=== PATIENT | female | born 1960 | race Caucasian/White ===

== ENCOUNTER 2016-10-04 13:46 | Emergency (ER) | payer MEDICAID ==
[2016-10-04 14:18] VITALS: BP 147/69; PULSE 84; RESP 18; TEMP 98; O2SAT 99
--- NOTE | 2016-10-04 15:28 | ED PDOC ---
HPI: Skin/Bite Injury Time Seen by Provider: 10/04/16 14:34 Chief Complaint (Nursing): Abnormal Skin Integrity Chief Complaint (Provider): Rash History Per: Patient History/Exam Limitations: no limitations Onset/Duration Of Symptoms: Persistent (2 weeks ) Current Symptoms Are (Timing): Still Present Quality Of Symptoms: Itching Additional Complaint(s): Jun Tomlinson is a 56 y/o female presenting to the ER on 10/04/2016 with complaints of a pruritic rash between her third and fourth/ fourth and fifth digits bilaterally for two weeks. Patient was seen by her PMD two weeks ago for the same complaints. At that time , she was given a steroid cream. Patient states the rash has been more itchy and painful, prompting her to seek medical evaluation. Denies any fever or chills. Patient also notes she wears gloves at her work. Past Medical History Reviewed: Historical Data, Nursing Documentation, Vital Signs Vital Signs: Last Vital Signs Temp 98 F 10/04/16 14:16 Pulse 84 10/04/16 14:16 Resp 18 10/04/16 14:16 BP 147/69 10/04/16 14:16 Pulse Ox 99 10/04/16 15:32 - Medical History PMH: No Chronic Diseases - Surgical History Surgical History: No Surg Hx - Family History Family History: States: Unknown Family Hx - Social History Current smoker - smoking cessation education provided: No Alcohol: None Drugs: Denies - Home Medications Home Medications: Ambulatory Orders Medication Instructions Recorded Fluconazole [Diflucan] 150 mg PO WM #4 tab 10/04/16 - Allergies Allergies/Adverse Reactions: Allergies Allergy/AdvReac Type Severity Reaction Status Date / Time No Known Allergies Allergy Verified 10/04/16 14:18 Review of Systems Constitutional: Negative for: Fever, Chills Skin: Positive for: Rash Neurological: Negative for: Weakness, Numbness Physical Exam - Reviewed Nursing Documentation Reviewed: Yes Vital Signs Reviewed: Yes - Physical Exam Appears: Positive for: Non-toxic, No Acute Distress Head Exam: Positive for: ATRAUMATIC, NORMOCEPHALIC Skin: Positive for: Rash ((+) erythema with fissures and saddle adhesions ) Eye Exam: Positive for: Normal appearance Neck: Positive for: Normal Cardiovascular/Chest: Positive for: Regular Rate, Rhythm. Negative for: Murmur Respiratory: Positive for: Normal Breath Sounds. Negative for: Respiratory Distress Extremity: Positive for: Normal ROM, Capillary Refill (normal ). Negative for: Deformity, Swelling Neurologic/Psych: Positive for: Alert, Oriented. Negative for: Motor/Sensory Deficits - ECG O2 Sat by Pulse Oximetry: 99 Medical Decision Making Medical Decision Makin:34 Initial Impression- 56 y/o female with pruritic rash Documented by Sonia Ochoa, acting as a scribe for Yen Le PA-C All medical record entries made by the Scribe were at my direction and personally dictated by me. I have reviewed the chart and agree that the record accurately reflects my personal performance of the history, physical exam, medical decision making, and the department course for this patient. I have also personally directed, reviewed, and agree with the discharge instructions and disposition. Disposition - Clinical Impression Clinical Impression: Yeast infection of the skin - Patient ED Disposition Is Patient to be Admitted: No Counseled Patient/Family Regarding: Diagnosis, Need For Followup, Rx Given - Disposition Referrals: [facility] [Outside] Disposition: Routine/Home Disposition Time: 15:32 Condition: GOOD Prescriptions: Fluconazole [Diflucan] 150 mg PO WM #4 tab Instructions: Skin Yeast Infection (ED) Print Language: INDONESIAN
== END 2016-10-04 17:15 | disposition home or self-care (01) ==
LOC: H.ER 13:46
DX: B37.2 Candidiasis of skin and nail (principal)